=== PATIENT | male | born 1950 | race Caucasian/White ===

== ENCOUNTER 2016-10-15 01:35 | Emergency (ER) | payer BC ==
[2016-10-15] MEDS ORDERED: IPRATROPIUM/ALBUTEROL (0.5MG/3MG) NEB INH ONE (01:56)
[2016-10-15] MEDS ORDERED: METHYLPREDNISOLONE PF 125MG/VIAL IVP ONE (01:56)
[2016-10-15] MEDS ORDERED: ALBUTEROL SULFATE (0.083%) 2.5 MG/3 ML NEB INH ONE ×2 (01:56→02:52)
[2016-10-15 02:08] LABS: BASO % 0.7 % (0-6); EOS % 4.5 % (0-6); GRAN % 69.8 % (47-80); HEMATOCRIT 39.8 % (42.0-52.0); HEMOGLOBIN 13.3 gm/dl (14.0-18.0); LYMPH % 14.1 % (16-45); MEAN CELL VOLUME 95.4 fl (81-97); MEAN CORPUSCULAR HGB CONC 33.4 g/dl (32-36); MEAN PLATELET VOLUME 9.9 fl (7.4-10.4); MONO % 10.9 % (0-9); PLATELET COUNT 281 K/uL (130-400); RED BLOOD COUNT 4.17 M/uL (4.40-5.70); RED CELL DISTRIBUTION WIDTH 12.6 % (11.5-14.5); WHITE BLOOD COUNT W/O DIFF 7.3 K/uL (4.2-12.2)
[2016-10-15 02:14] LABS: MEAN CORPUSCULAR HEMOGLOBIN 31.8 pg (27-33)
[2016-10-15 02:19] LABS: ANION GAP 8.3 (7-16); BLOOD UREA NITROGEN 13 mg/dL (9-20); CARBON DIOXIDE 25.7 mmol/L (22-30); CREATININE 0.7 mg/dL (0.66-1.25); EST GLOMERULAR FILTRATION RATE > 60 ml/min; GLUCOSE,RANDOM 132 mg/dL (70-110)
[2016-10-15] MEDS ORDERED: AZITHROMYCIN 500 MG TABLET PO ONE (02:54)
--- NOTE | 2016-10-15 03:00 | Emergency Department Record ---
History of Present Illness - General Chief Complaint: Difficulty Breathing Stated Complaint: ASTHMA ATTACK Time Seen by Provider: 10/15/16 01:55 Source: Patient Mode of Arrival: Ambulatory Limitations: No limitations - History of Present Illness Initial Comments: pt has had sob for 2 days w productive green cough. ems was called earlier tonight but when they got there pt felt better so refused. he feels worse now MD Complaint: Shortness of breath Onset/Timin -: Days(s) Consistency: Constant Improves With: Bronchodilators, Medication Worsens With: Exertion Known History Of: COPD Context: Recent URI Treatments Prior to Arrival: Bronchodilator, Other - Related Data Previous Rx's Medication Instructions Recorded Azithromycin [Zithromax] 250 mg PO DAILY #4 tab 03/13/15 Prednisone [Prednisone 20Mg] 20 mg PO DAILY #20 tab 03/13/15 Azithromycin [Zithromax] 250 mg PO DAILY #4 tab 10/15/16 Prednisone [Prednisone 20Mg] 20 mg PO BIDPC #8 tab 10/15/16 Allergies Allergy/AdvReac Type Severity Reaction Status Date / Time No Known Drug Allergies Allergy Verified 11/23/13 15:57 Travel Screening - Travel/Exposure Within Last 30 Days Have you traveled within the last 30 days?: No - Travel Symptoms Symptom Screening: None Review of Systems Reviewed: No additional complaints except as noted below Constitutional: Reports: As per HPI. Denies: Chills, Fever, Malaise, Night sweats, Weakness, Weight change Eyes: Reports: As per HPI. Denies: Eye discharge, Eye pain, Photophobia, Vision change ENT: Reports: As per HPI. Denies: Congestion, Dental pain, Ear pain, Epistaxis , Hearing loss, Throat pain Respiratory: Reports: As per HPI. Denies: Cough, Dyspnea, Hemoptysis, Stridor, Wheezes Cardiovascular: Reports: As per HPI. Denies: Arrhythmia, Chest pain, Dyspnea on exertion, Edema, Murmurs, Orthopnea, Palpitations, Paroxysmal nocturnal dyspnea, Rheumatic Fever, Syncope Endocrine: Reports: As per HPI. Denies: Fatigue, Heat or cold intolerance, Polydipsia, Polyuria Gastrointestinal: Reports: As per HPI. Denies: Abdominal pain, Constipation, Diarrhea, Hematemesis, Hematochezia, Melena, Nausea, Vomiting Genitourinary: Reports: As per HPI. Denies: Dysuria, Frequency, Hematuria, Incontinence, Retention, Testicular pain, Testicular mass, Urgency Musculoskeletal: Reports: As per HPI. Denies: Arthralgia, Back pain, Gout, Joint swelling, Myalgia, Neck pain Skin: Reports: As per HPI. Denies: Bruising, Change in color, Change in hair/ nails, Lesions, Pruritus, Rash Neurological: Reports: As per HPI. Denies: Abnormal gait, Confusion, Headache, Numbness, Paresthesias, Seizure, Tingling, Tremors, Vertigo, Weakness Psychiatric: Reports: As per HPI. Denies: Anxiety, Auditory hallucinations, Depression, Homicidal thoughts, Suicidal thoughts, Visual hallucinations Hematological/Lymphatic: Reports: As per HPI. Denies: Anemia, Blood Clots, Easy bleeding, Easy bruising, Swollen glands Past Medical History - SOCIAL HISTORY Smoking Status: Former smoker Alcohol Use: None Drug Use: None - RESPIRATORY Hx Respiratory Disorders: Yes Hx Asthma: Yes Hx COPD: Yes - CARDIOVASCULAR Hx Cardio Disorders: No - NEURO Hx Neuro Disorders: No - GI Hx GI Disorders: No - Hx Genitourinary Disorders: No - ENDOCRINE Hx Endocrine Disorders: No - MUSCULOSKELETAL Hx Musculoskeletal Disorders: No - PSYCH Hx Psych Problems: No - HEMATOLOGY/ONCOLOGY Hx Hematology/Oncology Disorders: No Family Medical History Any Significant Family History?: No Family Hx Comment (NOT TO BE USED IN PLACE OF ITEMS BELOW): DENIES Physical Exam - General General Appearance: Alert, Oriented x3, Cooperative, Mild distress - Head Head exam: Normal inspection - Eye Eye exam: Normal appearance, PERRL, EOMI Pupils: Normal accommodation - ENT ENT exam: Normal exam, Mucous membranes moist, Normal external ear exam, Normal orophraynx Ear exam: Normal external inspection. negative: External canal tenderness Nasal Exam: Normal inspection. negative: Discharge, Sinus tenderness Mouth exam: Normal external inspection, Tongue normal Teeth exam: Normal inspection. negative: Dental caries Throat exam: Normal inspection. negative: Tonsillar erythema, Tonsillar exudate - Neck Neck exam: Normal inspection, Full ROM. negative: Tenderness - Respiratory Respiratory exam: Accessory muscle use, Decreased breath sounds, Respiratory distress, Wheezes - Cardiovascular Cardiovascular Exam: Regular rate, Normal rhythm, Normal heart sounds - GI/Abdominal GI/Abdominal exam: Soft, Normal bowel sounds. negative: Tenderness - Rectal Rectal exam: Deferred - exam: Deferred - Extremities Extremities exam: Normal inspection, Full ROM, Normal capillary refill. negative: Tenderness - Back Back exam: Reports: Normal inspection, Full ROM. Denies: Muscle spasm, Rash noted, Tenderness - Neurological Neurological exam: Alert, CN II-XII intact, Normal gait, Oriented X3 - Psychiatric Psychiatric exam: Normal affect, Normal mood - Skin Skin exam: Dry, Intact, Normal color, Warm Course Vital Signs 10/15/16 10/15/16 10/15/16 01:44 02:02 02:03 Temperature 98.4 F Pulse Rate 90 88 Pulse Rate [ 91 H Pulse Ox Probe] Respiratory 24 22 20 Rate Blood Pressure 145/89 [Left Arm] Pulse Ox 97 96 93 L 10/15/16 02:15 Temperature Pulse Rate Pulse Rate [ 90 Pulse Ox Probe] Respiratory 24 Rate Blood Pressure 135/70 [Left Arm] Pulse Ox 95 - Reevaluation(s) Reevaluation #1: 10/15/16 03:05 pt feels better. decreased wheezing Medical Decision Making - Lab Data Result diagrams: 10/15/16 02:00 10/15/16 02:00 Lab Results 10/15/16 10/15/16 10/15/16 Range/Units 02:00 02:00 02:00 WBC 7.3 (4.2-12.2) K/uL RBC 4.17 L (4.40-5.70) M/uL Hgb 13.3 L (14.0-18.0) gm/dl Hct 39.8 L (42.0-52.0) % MCV 95.4 (81-97) fl MCH 31.8 (27-33) pg MCHC 33.4 (32-36) g/dl RDW 12.6 (11.5-14.5) % Plt Count 281 (130-400) K/uL MPV 9.9 (7.4-10.4) fl Gran % 69.8 (47-80) % Lymphocytes % 14.1 L (16-45) % Monocytes % 10.9 H (0-9) % Eosinophils % 4.5 (0-6) % Basophils % 0.7 (0-6) % Sodium 140 (136-145) mmol/L Potassium 3.8 (3.5-5.1) mmol/L Chloride 106 (98-107) mmol/L Carbon Dioxide 25.7 (22-30) mmol/L Anion Gap 8.3 (7-16) BUN 13 (9-20) mg/dL Creatinine 0.7 (0.66-1.25) mg/dL Estimated GFR > 60 ml/min Random Glucose 132 H (70-110) mg/dL Calcium 8.8 (8.5-10.1) mg/dL Troponin I < 0.012 (0.00-0.034) ng/mL Disposition Disposition: Discharge Clinical Impression: Acute bronchitis with COPD Disposition: Home, Self-Care Condition: (1) Good Instructions: COPD (Chronic Obstructive Pulmonary Disease) (ED), Acute Bronchitis (ED) Additional Instructions: follow up with family doctor tomorrow. return sooner if worse. Prescriptions: Azithromycin [Zithromax] 250 mg PO DAILY #4 tab Prednisone [Prednisone 20Mg] 20 mg PO BIDPC #8 tab Forms: Patient Portal Access Quality - Quality Measures Quality Measures: N/A - Blood Pressure Screening Does Patient Have Any of the Following: No Blood Pressure Classification: Pre-Hypertensive BP Reading Systolic Measurement: 135 Diastolic Measurement: 70 Screening for High Blood Pressure: < Pre-Hypertensive BP, F/U Documented > [ [id number]] Pre-Hypertensive Follow-up Interventions: Follow-up with rescreen every year.
--- NOTE | 2016-10-16 07:13 | RADIOLOGY REPORT ---
EXAM: CHEST, TWO VIEWS HISTORY: DIFFICULTY BREATHING. TECHNIQUE: Frontal and lateral views of the chest were performed. FINDINGS: The heart size is normal. No infiltrate or pleural effusion. The osseous structures demonstrate mild degenerative change. IMPRESSION: NO ACUTE PULMONARY DISEASE PROCESS. JOB NUMBER: [id number] MTDD
== END 2016-10-15 03:38 | disposition home or self-care (01) ==
LOC: ER 01:35
DX: J44.0 Chronic obstructive pulmonary disease with (acute) lower respiratory infection (principal); R20.9 Unspecified disturbances of skin sensation; R06.02 Shortness of breath; Z87.891 Personal history of nicotine dependence
CPT/HCPCS: 71020; 80048; 84484; 85025; 94640; 96374; 99284; J2930; J7613